=== PATIENT | female | born 1980 | race Caucasian/White ===

== ENCOUNTER 2020-01-06 18:34 | Emergency (ER) | payer BC ==
[2020-01-06 18:52] VITALS: TEMP 98
[2020-01-06] MEDS ORDERED: SODIUM CHLORIDE 0.9% 1,000 ML IV ONE (19:20)
[2020-01-06] MEDS ORDERED: KETOROLAC 15 MG/ML 1 ML VIAL IVP STA (19:20)
[2020-01-06] MEDS ORDERED: METOCLOPRAMIDE 5 MG/ML 2 ML VIAL IVP STA (19:20)
[2020-01-06] MEDS ORDERED: diphenhydrAMINE 50 MG/ML 1 ML VIAL IVP STA (19:20)
[2020-01-06] MEDS ORDERED: DEXAMETHASONE SOD PHOSPHATE 10 MG/ML 1 ML VIAL IV STA (19:20)
--- NOTE | 2020-01-06 19:41 | ED ---
Headache HPI - General Chief Complaint: Headache Stated Complaint: Migraine, Nausea Time Seen by Provider: 01/06/20 19:04 Mode of arrival: ambulatory Limitations: no limitations - History of Present Illness Initial Comments: 39-year-old female patient with past medical history significant for migraine headaches, pots syndrome presents to the emergency department today for evalu ation of migraine headache that started around 12:00 this afternoon. Patient states that she does have a history of migraines. States she currently has headache rated at 8/10 on the pain scale. She is experiencing associated nausea, light sensitivity, sound sensitivity, floaters in her vision. She denies any numbness, tingling, or weakness. Denies any recent head injury. She did not take any medication for her symptoms today. She denies any new symptoms with this headache, but does feel that her migraines are occurring more frequently. Patient states that she used to take Maxalt for her headaches, but it stopped working so she does not take it anymore. Patient denies any recent rash, fever, chills, cough, shortness of breath, chest pain, abdominal pain, vomiting, diarrhea, constipation, back pain, hematuria, dysuria, urinary urgency, urinary frequency, or any other complaints. - Related Data Home Medications Medication Instructions Recorded Confirmed Aspirin [Adult Low Dose Aspirin EC] 81 mg PO DAILY 11/13/18 01/06/20 Cholecalciferol [Vitamin D3 (25 1,000 unit PO DAILY 03/23/19 01/06/20 Mcg = 1000 Iu)] Vitamin B Complex/Folic Acid 0.4 mg PO DAILY 03/23/19 01/06/20 [B-Complex Tablet] Sertraline HCl [Zoloft] 75 mg PO DAILY 01/06/20 01/06/20 Allergies Allergy/AdvReac Type Severity Reaction Status Date / Time hydromorphone [From Dilaudid] AdvReac Intermediate Unknown Verified 01/06/20 20:18 VICRYL Allergy Intermediate Unknown Uncoded 01/06/20 18:52 Review of Systems ROS Statement: Those systems with pertinent positive or pertinent negative responses have been documented in the HPI. ROS Other: All systems not noted in ROS Statement are negative. Past Medical History Past Medical History: Blood Disorder, Deep Vein Thrombosis (DVT), Supraventricular Tachycardia (SVT), Thyroid Disorder, Vascular Disorder Additional Past Medical History / Comment(s): AUTOMIMMUNE DISORDER-WEBBER- HYPERADRENARGIC DISORDER. HASHIMOTOS DISEASE. CLOTTING DISORDER, FACTOR 2 BLOOD DISORDER. ANTIPHOSPHOLIPID ANTIBODIES. HYPOTHYROIDISM. MULTINODULAR GOITER. ENDOMETRIOSIS, FIBROUS BREASTS. REPRODUCTIVE AUTOIMMUNE DISESASE. RAYNAUDS DISORDER. IBS History of Any Multi-Drug Resistant Organisms: None Reported Additional Past Surgical History / Comment(s): IVF X2. LAPROSCOPES, HYTEROSCOPY. L.I.T. OVARIAN CYSTS. D&C Past Anesthesia/Blood Transfusion Reactions: No Reported Reaction Past Psychological History: Anxiety Smoking Status: Never smoker Past Alcohol Use History: Occasional Past Drug Use History: None Reported - Past Family History Mother Family Medical History: Hypertension Father Family Medical History: Unable to Obtain General Exam Limitations: no limitations General appearance: alert, in no apparent distress, other (This is a well- developed, well-nourished adult female patient in no acute distress.) Eye exam: Present: normal appearance, PERRL, EOMI. Absent: scleral icterus, conjunctival injection, nystagmus, periorbital swelling ENT exam: Present: normal exam, normal oropharynx, mucous membranes moist Respiratory exam: Present: normal lung sounds bilaterally. Absent: respiratory distress, wheezes, rales, rhonchi, stridor Cardiovascular Exam: Present: regular rate, normal rhythm, normal heart sounds. Absent: systolic murmur, diastolic murmur, rubs, gallop, clicks GI/Abdominal exam: Present: soft, normal bowel sounds. Absent: distended, tenderness, guarding, rebound, rigid Neurological exam: Present: alert, oriented X3, CN II-XII intact Expanded Motor strength exam: RUE: 5, LUE: 5, RLE: 5, LLE: 5 Psychiatric exam: Present: normal affect, normal mood Skin exam: Present: warm, dry, intact, normal color. Absent: rash Course Vital Signs 01/06/20 01/06/20 18:48 20:39 Temperature 98 F Pulse Rate 86 90 Respiratory 18 17 Rate Blood Pressure 122/78 103/58 O2 Sat by Pulse 100 100 Oximetry Medical Decision Making - Medical Decision Making 39-year-old female patient presents to the emergency department today for evaluation of migraine headache. She does have a history of migraines and states her symptoms are consistent with her usual migraine pattern. She denies is being the worst headache of her life. Physical examination was unremarkable. She is neurologically intact with no focal deficits. She was given IV fluids and medications. Upon reevaluation she is reporting improvement of symptoms pain is out of a 3 out of 10 on the pain scale. She'll be discharged home at this time to follow-up with her primary care physician and discussed referral to neurology for management of her migraine headaches. Return parameters were discussed in detail. She verbalizes understanding and agrees with this plan. Disposition Clinical Impression: Migraine headache Disposition: HOME SELF-CARE Condition: Good Instructions (If sedation given, give patient instructions): Migraine Headache (ED) Additional Instructions: Increase fluids. Rest. Follow-up through primary care physician for recheck in 1-2 days. Consider follow-up with neurology for further evaluation and management of your migraine headaches. Return to the emergency department immediately for any new, worsening, or concerning symptoms. Is patient prescribed a controlled substance at d/c from ED?: No Referrals: Barrie Regan MD [Primary Care Provider] - 1-2 days Lio Armendariz MD [STAFF PHYSICIAN] - 1-2 days Time of Disposition: 20:28
[2020-01-06 20:40] VITALS: BP 103/58; PULSE 90; RESP 17
== END 2020-01-06 20:39 | disposition home or self-care (01) ==
LOC: EC 18:34
DX: G43.909 Migraine, unspecified, not intractable, without status migrainosus (principal); F41.9 Anxiety disorder, unspecified; Z79.82 Long term (current) use of aspirin; Z79.899 Other long term (current) drug therapy; Z88.5 Allergy status to narcotic agent; Z91.048 Other nonmedicinal substance allergy status; Z86.718 Personal history of other venous thrombosis and embolism
CPT/HCPCS: 99283; 96374; 96375 ×3; 96361; J1200; J1100; J2765; J1885